=== PATIENT | female | born 1945 | race Caucasian/White ===

== ENCOUNTER 2023-08-27 10:35 | Day surgery (SDC) | payer MEDICARE, OTHER ==
[2023-08-26 12:24] LABS: EOSINOPHILS # (AUTO) 0.1 X10'3 (0-0.9); HEMOGLOBIN 14.1 g/dl (12.0-16.0); MONOCYTES # (AUTO) 0.3 X10'3 (0-0.9); PROTHROMBIN TIME 9.8 SECONDS (9.0-12.0); RED CELL DISTRIBUTION WIDTH 13.6 % (11.5-14.5); WHITE BLOOD COUNT 4.7 X10'3 (4.5-11.0)
[2023-08-26 12:26] LABS: BASOPHILS % (AUTO) 0.2 % (0-1); EOSINOPHILS % (AUTO) 1.7 % (0-6); HEMATOCRIT 42.4 % (35.0-45.0); LYMPHOCYTES # (AUTO) 1.2 X10'3 (1.1-4.8); LYMPHOCYTES % (AUTO) 26.4 % (21-51); MEAN CORPUSCULAR HEMOGLOBIN 29.7 PG (27.0-31.0); MEAN CORPUSCULAR HGB CONC 33.2 g/dL (33.0-36.5); MEAN CORPUSCULAR VOLUME 89.5 FL (78-98); MEAN PLATELET VOLUME 9.8 FL (7.4-10.4); MONOCYTES % (AUTO) 6.5 % (2-12); NEUTROPHILS # (AUTO) 3.1 X10'3 (1.8-7.7); NEUTROPHILS % (AUTO) 65.2 % (42-75); PLATELET COUNT 229 X10'3 (140-440); RED BLOOD COUNT 4.74 X10'6 (4.20-5.60)
[2023-08-26 12:27] LABS: ALBUMIN 3.8 G/DL (3.4-5.0); ANION GAP 10 (8-16); APTT 28 SECONDS (22-32); BLOOD UREA NITROGEN 15 MG/DL (7-18); BUN/CREATININE RATIO 13.6 (10.0-20.0); CALCIUM 9.5 MG/DL (8.5-10.1); CHLORIDE 105 MMOL/L (99-107); GLUCOSE 88 MG/DL (70-104); INR 0.9 INR; POTASSIUM 4.5 MMOL/L (3.5-5.1); SODIUM 142 MMOL/L (135-145); TOTAL CARBON DIOXIDE 26.7 MMOL/L (24-32); eGFR 48 ML/MIN
[2023-08-27] VITALS (10 sets, daily range): BP systolic 126–159; BP diastolic 49–78; PULSE 55–75; RESP 12–20; TEMP 97.7; O2SAT 97–100
[~2023-08-27] VITALS: Ht 170.2 cm; Wt 103.0 kg
[2023-08-27] MEDS ORDERED: LEVO100T9 PO (11:13)
[2023-08-27] MEDS ORDERED: CHOL500061 PO (11:13)
[2023-08-27] MEDS ORDERED: FISH12002 PO (11:13)
[2023-08-27] MEDS ORDERED: APIX5TAB3 PO (11:13)
[2023-08-27] MEDS ORDERED: AMI200T PO (11:13)
[2023-08-27] MEDS: diphenhydrAMINE 25mg capsule PO PRN (11:42)
[2023-08-27] MEDS: normal saline 1,000 ML IV SCH (11:43)
[2023-08-27] MEDS ORDERED: verapamil 2.5 mg/ml inj IV ONE (11:46)
[2023-08-27] MEDS ORDERED: LIDOcaine 1% (10mg/ml) 2ml vial ONE (11:46)
[2023-08-27] MEDS ORDERED: fentaNYL/PF 50MCG/1 ML 2ML syringe ONE (11:46)
[2023-08-27] MEDS ORDERED: midazolam 1 mg/ML 2ml injection ONE (11:46)
[2023-08-27] MEDS ORDERED: iohexol 350 MG/ML 50ML vial IV ONE (11:46)
[2023-08-27] MEDS ORDERED: heparin 1,000unit/ml 10ml vial 10 ML ONE (11:47)
[2023-08-27] MEDS ORDERED: iohexol 350MG/ML 100ml bottle IV ONE ×2 (11:47→13:31)
[2023-08-27] MEDS ORDERED: nitroGLYCERIN 500mcg/5mL D5W 5 ML IV ONE ×2 (11:52→13:53)
[2023-08-27] MEDS: LORazepam 0.5 MG tablet PO PRN (12:43)
[2023-08-27] MEDS ORDERED: LIDOcaine 1% 30ml preserv. free vial ONE (13:38)
[2023-08-27] MEDS ORDERED: heparin 25,000 UNIT/250ml bag 250 ML IV ONE (13:53)
[2023-08-27] MEDS ORDERED: heparin 1,000 UNITS/NS 500ml 500 ML ONE (14:13)
[2023-08-27] MEDS ORDERED: clopidogrel 300mg tablet ONE ×2 (14:39→14:42)
[2023-08-27] MEDS ORDERED: hydrALAZINE 20mg/ml inj. IV ONE (14:43)
[2023-08-27 15:15] LABS: ISTAT HGB ART 13.3 g/dl (12.0-16.0); ISTAT Hct ART 39 %PCV (35-45); ISTAT O2 SATURATION ARTERIAL 95 % (95-98); ISTAT SOURCE ART
[2023-08-28 07:53] LABS: ISTAT HGB MIX 12.9 g/dl (12.0-16.0); ISTAT Hct MIX 38 %PCV (35-45); ISTAT O2 SATURATION MIX VENOUS 68 % (60-80); ISTAT SOURCE OTHER
[2023-08-28] MEDS ORDERED: clopidogrel 75mg tablet PO SCH (08:00)
== END 2023-08-27 20:45 | disposition home or self-care (01) ==
LOC: SSTAY O 10:35
PROVIDERS: ATTEND Internal Medicine Cardiovascular Disease
DX: I47.20 Ventricular tachycardia, unspecified (principal); I25.10 Atherosclerotic heart disease of native coronary artery without angina pectoris; I48.92 Unspecified atrial flutter; E78.5 Hyperlipidemia, unspecified; E03.9 Hypothyroidism, unspecified; E66.9 Obesity, unspecified; Z68.35 Body mass index [BMI] 35.0-35.9, adult; M86.8X2 Other osteomyelitis, upper arm; M19.90 Unspecified osteoarthritis, unspecified site; F32.9 Major depressive disorder, single episode, unspecified; G47.30 Sleep apnea, unspecified; I48.0 Paroxysmal atrial fibrillation; Z87.01 Personal history of pneumonia (recurrent); Z86.16 Personal history of COVID-19; Z87.440 Personal history of urinary (tract) infections; Z98.890 Other specified postprocedural states; Z88.1 Allergy status to other antibiotic agents; Z88.2 Allergy status to sulfonamides; Z87.891 Personal history of nicotine dependence; Z79.01 Long term (current) use of anticoagulants; Z79.899 Other long term (current) drug therapy; Z82.49 Family history of ischemic heart disease and other diseases of the circulatory system; Z81.8 Family history of other mental and behavioral disorders
CPT/HCPCS: 36415; 76937; 80048; 82803; 85014; 85025; 85347; 85610; 85730; 93005; 93460; 99152; 99153; C1874; C9600; J0360; J1644; J2250; J3010; J3490; J7030; Q0163; Q9967; A6258; A6402; C1725; C1751; C1760; C1769; C1894